=== PATIENT | female | born 1950 | race Caucasian/White ===

== ENCOUNTER → 2018-04-16 | Outpatient (CLI) | payer MEDICARE, OTHER ==
[~2018-04-16] MED LIST: ALBU8.5H8 INH; AMIT10TA PO; AMOX1TAB64 PO; BUSP30TA PO; DEXL60CA2 PO; DICL100G19 TD; DILT120T4 PO; DIPH1TAB PO; DOXY100T PO; DULO30CA2 PO; ESTR1.25 PO; FLUC200T PO; HEPA500024 SQ; HYDR-3237 PO; HYDR-3245 PO; HYDR25TA6 PO; LEVO50TA5 PO; LEVO750T26 PO; LISI-170 PO; METH4TAB7 PO; METR500T PO; MULT-464 PO; OMEP40CA6 PO; ONDA4TAB10 PO; OXYC5TAB3 PO; PANT40TA5 PO; PREG225C PO; PRIM50TA PO; SPIR50TA4 PO; SUMA1TAB PO; SUMA50TA3 PO; TAPE100T6 PO; [UNRECOGNIZED DRUG - OTHER] PO
== END | disposition home or self-care (01) ==
LOC: CFH 16:09
PROVIDERS: ATTEND Internal Medicine
DX: H70.91 Unspecified mastoiditis, right ear (principal); G93.9 Disorder of brain, unspecified
CPT/HCPCS: 70551

== ENCOUNTER 2018-09-11 18:21 | Emergency (ER) | payer MEDICARE, OTHER ==
[~2018-09-11] VITALS: Ht 175.3 cm; Wt 91.0 kg
--- NOTE | 2018-09-11 18:34 | NUR ---
PT BIB [facility] FOR [facility], SINCE YESTERDAY. HISTORY OF IBS. PT STATED THAT SHE IS OUT OF HER PAIN MEDICATIONS. FS 147. PT IS ALERT, ORIENTED, WITH NAD. PT IS CONNECTED TO THE MONITOR. CALL LIGHT WITHIN REACH.
--- NOTE | 2018-09-11 18:54 | NUR ---
REPORT GIVEN TO NETTE HOANG.
--- NOTE | 2018-09-11 18:57 | NUR ---
PT RESTING ON GURNEY, C/O ABD PAIN REQUESTING PAIN MEDICATION, STATED " I HAVE A IV, I NEED MEDICATION FOR PAIN", WILL UPDATE ERP. MONITORS IN PLACE, SIDERAILS UP X2, CALL LIGHT WITHIN REACH.
[2018-09-11] MEDS ORDERED: HYDROcodone/APAP 5/325 TABLET ONE (19:23)
[2018-09-11] MEDS ORDERED: ONDANSETRON ODT 4 MG ONE (19:23)
[2018-09-11] MEDS ORDERED: HYDROcodone/APAP 5/325 TABLET PO ONE (19:30)
[2018-09-11] MEDS ORDERED: ONDANSETRON ODT 4 MG PO ONE (19:30)
[2018-09-11 19:32] LABS: BASOPHILS # (AUTO) 0.06 x10^3/uL (0-0.1); BASOPHILS % (AUTO) 1 % (0-1); EOSINOPHILS # (AUTO) 0.04 x10^3/uL (0-0.4); EOSINOPHILS % (AUTO) 0 % (1-7); LYMPHOCYTES # (AUTO) 1.69 x10^3/uL (1-3.4); LYMPHOCYTES % (AUTO) 15 % (22-44); MD NO; MEAN CORPUSCULAR HEMOGLOBIN 28.9 pg (27.0-34.8); MEAN CORPUSCULAR VOLUME 85.1 fL (80-100); MEAN PLATELET VOLUME 8.5 fL (7.4-10.4); MONOCYTES % (AUTO) 5 % (2-9); NEUTROPHILS # (AUTO) 9.21 x10^3/uL (1.8-6.8); NEUTROPHILS % (AUTO) 79 % (42-75); PLATELET COUNT 389 x10^3/uL (130-400); RED BLOOD COUNT 4.93 x10^6/uL (3.82-5.3); RED CELL DISTRIBUTION WIDTH 13.5 % (9.6-15.2)
[2018-09-11 19:43] LABS: ALANINE AMINOTRANSFERASE 8 U/L (12-78); ALBUMIN 3.9 g/dL (3.4-5.0); ANION GAP 10 mmol/L (5-15); CALCIUM 9.9 mg/dL (8.5-10.1); CHLORIDE 106 mmol/L (98-107); CREATININE 1.05 mg/dL (0.55-1.02)
[2018-09-11 19:46] LABS: ALKALINE PHOSPHATASE 85 U/L (45-117); BILIRUBIN,TOTAL 0.4 mg/dL (0.2-1.0); TOTAL PROTEIN 7.9 g/dL (6.4-8.2)
--- NOTE | 2018-09-11 19:46 | NUR ---
ASSISTED PT ONTO [facility], PROVIDED WITH URINE CUP FOR SAMPLE.
--- NOTE | 2018-09-11 19:52 | NUR ---
URINE SAMPLE TAKEN TO LAB
[2018-09-11 20:10] LABS: MICROSCOPIC NOT IND
[2018-09-11 20:14] LABS: CULTURE INDICATED? NO
[2018-09-11 20:57] VITALS: BP 176/105
--- NOTE | 2018-09-11 20:57 | NUR ---
PT RESTING ON GURNEY, MONITORS IN PLACE, CALL LIGHT WITHIN REACH, PROVIDED PT WITH XTRA WARM BLANKETS/ AWAITING XRAY RESULT
[2018-09-11] MEDS ORDERED: DICYCLOMINE 10 MG/ML, 2ML ONE (21:17)
[2018-09-11] MEDS ORDERED: DICYCLOMINE 10 MG/ML, 2ML IM ONE (21:30)
--- NOTE | 2018-09-11 21:55 | NUR ---
ASSISTED PT TO [facility].
== END 2018-09-11 22:27 | disposition home or self-care (01) ==
LOC: ED 22:13
DX: K58.0 Irritable bowel syndrome with diarrhea (principal); F11.20 Opioid dependence, uncomplicated; Z90.49 Acquired absence of other specified parts of digestive tract; Z90.710 Acquired absence of both cervix and uterus
CPT/HCPCS: 36415; 74021; 80053; 81003; 83690; 85025; 96372; 99284; J0500; Q0162

== ENCOUNTER → 2018-12-02 | Outpatient (CLI) | payer MEDICARE, OTHER | END | disposition home or self-care (01) | LOC: CFH 14:51 | PROVIDERS: ATTEND Physical Medicine & Rehabilitation | DX: M51.34 Other intervertebral disc degeneration, thoracic region (principal) | CPT/HCPCS: 72146 ==

== ENCOUNTER → 2018-12-07 | Outpatient (CLI) | payer MEDICARE, OTHER | END | disposition home or self-care (01) | LOC: RAD 13:57 | PROVIDERS: ATTEND Physical Medicine & Rehabilitation | DX: M48.02 Spinal stenosis, cervical region (principal); M51.36 Other intervertebral disc degeneration, lumbar region | CPT/HCPCS: 72141; 72148 ==

== ENCOUNTER 2019-02-12 12:32 | Inpatient (IN) | payer MEDICARE, OTHER ==
[~2019-02-12] VITALS: Ht 175.3 cm; Wt 90.0 kg
[2019-02-13 13:42] VITALS: BP 152/79
== END 2019-02-13 15:02 | disposition home or self-care (01) | DRG 472 ==
LOC: ORIP 12:32 → EDSTATUS 14:30 → 4NOR 17:32
PROVIDERS: ADMIT Orthopaedic Surgery Orthopaedic Surgery of the Spine; ATTEND Orthopaedic Surgery Orthopaedic Surgery of the Spine
PROC: 0RG10A0 Fusion of Cervical Vertebral Joint with Interbody Fusion Device, Anterior Approach, Anterior Column, Open Approach (ICD-10-PCS; principal; 2019-02-12)
PROC: 0RB30ZZ Excision of Cervical Vertebral Disc, Open Approach (ICD-10-PCS; 2019-02-12)
PROC: 4A11X4G Monitoring of Peripheral Nervous Electrical Activity, Intraoperative, External Approach (ICD-10-PCS; 2019-02-12)
PROC: 00NW0ZZ Release Cervical Spinal Cord, Open Approach (ICD-10-PCS; 2019-02-12)
PROC: 01N10ZZ Release Cervical Nerve, Open Approach (ICD-10-PCS; 2019-02-12)
DX: M48.02 Spinal stenosis, cervical region (principal); M50.022 Cervical disc disorder at C5-C6 level with myelopathy; J44.9 Chronic obstructive pulmonary disease, unspecified; M81.0 Age-related osteoporosis without current pathological fracture; I10 Essential (primary) hypertension; M50.122 Cervical disc disorder at C5-C6 level with radiculopathy; G43.909 Migraine, unspecified, not intractable, without status migrainosus; K21.0 Gastro-esophageal reflux disease with esophagitis; M25.78 Osteophyte, vertebrae; M79.7 Fibromyalgia; Z90.49 Acquired absence of other specified parts of digestive tract; Z86.73 Personal history of transient ischemic attack (TIA), and cerebral infarction without residual deficits; Z83.6 Family history of other diseases of the respiratory system; Z80.42 Family history of malignant neoplasm of prostate; Z88.8 Allergy status to other drugs, medicaments and biological substances
CPT/HCPCS: 36415; 72040; 85025; C1713; G0378; J0690; J1100; J1170; J2250; J2405; J2704; C1760; C1762; J0330; J0360; J2175; J2800; J7120

== ENCOUNTER 2019-11-25 13:15 | Emergency (ER) | payer MEDICARE, OTHER ==
[~2019-11-25] VITALS: Ht 175.3 cm; Wt 83.0 kg
[~2019-11-25 13:15] MED LIST changes: +OMEP40CA42 PO; -OMEP40CA6 PO; -PANT40TA5 PO; +PANT40TA6 PO
--- NOTE | 2019-11-25 13:32 | NUR ---
BIB EMS FOR GLF TO LEFT HIP. PAIN 10/10 TO LEFT HIP . NO NOTICEABLE DEFORMITY. PT NOT IN RESP DISTRESS, DENIES CP, COUGH, FEVER, SOB. 6MG MORPHINE GIVEN BY EMS.
--- NOTE | 2019-11-25 14:00 | NUR ---
PT IN IMAGING
--- NOTE | 2019-11-25 14:42 | NUR ---
PT BACK FROM IMAGING. REQUESTING PAIN MED
[2019-11-25] MEDS ORDERED: MORPHINE SULFATE 4 MG/ML, 1ML ONE (14:57)
[2019-11-25] MEDS ORDERED: ONDANSETRON 2MG/ML, 2ML ONE (14:57)
[2019-11-25] MEDS ORDERED: ONDANSETRON 2MG/ML, 2ML IVPush ONE (15:00)
[2019-11-25] MEDS ORDERED: MORPHINE SULFATE 4 MG/ML, 1ML IVPush PRN (15:00)
--- NOTE | 2019-11-25 15:03 | NUR ---
MEDICATED FOR PAIN, TO DC SOON .CALLING FAMILY TO HIDE HOUSE SUPERVISOR .
--- NOTE | 2019-11-25 16:21 | NUR ---
PT RESTING. WAITING FOR FAMILY TO BINDER CUTTER
--- NOTE | 2019-11-25 17:41 | NUR ---
Patient/Caregiver given discharge instructions and they have confirmed that they understand the instructions. Patient ambulatory with steady gait.
[2019-11-25 17:42] VITALS: BP 136/81
== END 2019-11-25 17:43 | disposition home or self-care (01) ==
LOC: ED 15:13
DX: S60.212A Contusion of left wrist, initial encounter (principal); S60.222A Contusion of left hand, initial encounter; S70.02XA Contusion of left hip, initial encounter; I10 Essential (primary) hypertension; W18.30XA Fall on same level, unspecified, initial encounter; Y93.89 Activity, other specified; Y92.009 Unspecified place in unspecified non-institutional (private) residence as the place of occurrence of the external cause; Y99.8 Other external cause status
CPT/HCPCS: 73110; 73130; 73502; 96374; 99284; J2270

== ENCOUNTER → 2020-05-30 | Outpatient (CLI) | payer MEDICARE, OTHER ==
[~2020-05-30] MED LIST changes: -SUMA1TAB PO; +SUMA1TAB12 PO
== END | disposition home or self-care (01) ==
LOC: CFH 12:51
PROVIDERS: ATTEND Registered Nurse
DX: R06.02 Shortness of breath (principal)
CPT/HCPCS: 93306